=== PATIENT | male | born 2000 | race Caucasian/White ===

== ENCOUNTER 2024-08-07 07:37 | Emergency (ER) | payer OTHER, SELFPAY ==
--- NOTE | ~2024-08-07 | CT_ITS ---
CT abdomen pelvis w con Ordering provider: Alexandre Welch MD History: 24 years Male with . abdominal pain-MID DIFFUSED,X1DAY,CRAMPING . Comparison: None. Technique: CT abdomen and pelvis with IV and without oral contrast. Automated exposure control and it erative reconstruction technique were employed. The dose-length product was 176.56 mGy-cm. 100 mL Omn ipaque 350 was given IV. Findings: VISUALIZED LOWER CHEST: Normal. UPPER ABDOMINAL ORGANS: Liver: Normal. Gallbladder: Normal. Spleen: Normal. Stomach/duodenum: Normal. Pancreas: Normal. Adrenals: Normal. Kidneys: Minimal fullness of the renal pelvis bilaterally. PELVIC ORGANS: The bladder is normal. BOWEL AND MESENTERY: Colon: No evidence of diverticulitis. Fecal material is loaded in the colon. The appendix is not demo nstrated. Small Bowel: Normal. No obstruction. Peritoneum/mesentery: No free air or free fluid. No mesenteric lymphadenopathy. RETROPERITONEUM: Normal aorta. No retroperitoneal lymphadenopathy. MUSCULOSKELETAL: Superficial soft tissues: The superficial soft tissues are normal. Bones: Normal spine. IMPRESSION: 1. No evidence of diverticulitis or intestinal obstruction. The appendix is not well demonstrated. 2. Minimal fullness of the renal pelvis bilaterally most likely due to overdistended bladder. 3. Constipation. Reviewed, dictated and finalized at location A. IMPRESSION: 1. No evidence of diverticulitis or intestinal obstruction. The appendix is no t well demonstrated. 2. Minimal fullness of the renal pelvis bilaterally most likely due to overdis tended bladder. 3. Constipation.
[2024-08-07 07:37] VITALS: BP 148/99; PULSE 73; RESP 14; TEMP 36.7; O2SAT 100
--- OUTSIDE RECORDS SUMMARY | 2024-08-07 07:41 | XMS_ITS | CONTINUITY OF CARE DOCUMENT ---
Author Name jesenia michaelbill Address Unknown Organization [facility] Address [address] [place] [address] Phone [phone] Care Team Providers Care Production Or Plant Engineer Name Role Phone John ESPINOSA, Nathaly Unavailable John ESPINOSA, Nathaly Unavailable HIEU ESPINOSA, [facility] Bisi Unavailable PROBLEMS Condition Status Date Provider Notes Shortness of breath (SOB) active Lucas Argueta Family History of Hyperlipidemia: active ? To livia Lopez MD Chest pain-type to be determined active Froylan Lopez MD Near Syncope active Nathaly Lopez MD ENCOUNTERS Date Type Provider Location Encounter Diag nosis - In-person encounter Office Visit Nathaly Lopez MD [facility] - In-person encounter Office Visit Nathaly Lopez MD [facility] Family History of Hyperlipidemia:Chest pain-type to be determinedNear Syncope VITAL SIGNS Date Observation Value Provider Body Mass Index (Ratio) 19.46 kg/m2 Marcel Lopez MD blood pressure, diastolic 70 mm[Hg] [place] blood pressure, systolic 102 mm[Hg] [place] pulse rate 74 /min [place] oxygen saturation, oximetry 98 % [place] respiratory rate E&M 16 /min [place] height E&M 68 [in_i] [place] weight E&M 128 [lb_av] [place] blood pressure, cuff size regular [place] blood pressure, diastolic 60 mm[Hg] Flores Brink blood pressure, systolic 100 mm[Hg] Can skylar Brink Body Mass Index (Ratio) 18.60 kg/m2 Marcel Loepz MD blood pressure, resting No Marcelo rojas [place] blood pressure, diastolic 70 mm[Hg] Cecilia dickson [place] blood pressure, systolic 120 mm[Hg] Katie trujillo [place] oxygen saturation, oximetry 98 % [facility] [place] respiratory rate E&M 16 /min [facility] [place] pulse rate 88 /min [facility] [place] weight E&M 126 [lb_av] [facility] [place] height E&M 69 [in_i] [facility] [place] ALLERGIES No Known Drug Allergies HISTORY OF MEDICATION USE Medication Status Instructions Dates Provider Indications Com ments GUANFACINE 3MG active one tab once daily [place] SOCIAL HISTORY Date Observation Value Provider Underweight no Nathaly Lopez MD smoking status Never smoker Nathaly Lopez MD social history reviewed E&M reviewed - no changes required Nathaly Lopez MD social history E&M Smoking Histo ry: P hayden has never smoked. Nathaly Lopez MD smoking status Never smoker Ilsa Marleny la number of grandchildren Nathaly Lopez MD T jos Lopez MD social history reviewed E&M reviewed - no changes required Nathaly Lopez MD social history E&M S moking History: Birgit blake has never smoked. Nathaly Lopez MD Underweight yes Nathaly Lopez MD smoking status Never smoker Marina Velasquez FUNCTIONAL STATUS Date Observation Value Provider periodic limb movement index absent (0) Ilsa Keena FAMILY HISTORY Family Member Condition Father Family History of Hy perlipidemia: INSURANCE PROVIDERS Payer name Policy type / Coverage type [place] [employer] party ID [facility] [id number] Other [id number] ADVANCE DIRECTIVES Name Date DISCUSSED - NO DECISION MADE TREATMENT PLAN Date Name Performer Cardiology:PFT's unremarkable. T jos Lopez MD Cardiology:Normal st ress test and echo. No events on monitor. Nathaly Lopez MD Cardiology:Check tele monitor To livia Lopez MD Cardiology:Echo and stress test. C heck PFTs Nathaly Lopez MD Date Name DLCO - 34866 FRC - 40596 FVC - 23117 STR - Routine Complete Echo Mobile Cardiac Tele HISTORY OF PROCEDURES Procedure Date Procedure Name Provider Procedure Notes S tatus Stress EKG Nathaly Lopez MD completed FVC / MVV - 32118 Nathaly Lopez MD co mpleted FRC - 68866 Nathaly Lopez MD complete d SpO2 w/o 6min walk/titration Nathaly Lopez MD completed DLCO - [id number] Nathaly Lopez MD complet ed Event Monitor Nathaly Lopez MD comple jenny
--- OUTSIDE RECORDS SUMMARY | 2024-08-07 07:41 | XMS_ITS | Clinical Summary ---
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 Gender Identity Not on file Sexual Orientation Not on file Plan of Treatment Health Maintenance Due Date Last Done Comments Hepatitis C Virus (HCV) Screening 2000 Meningococcal B Immunization (1 of 2 - Standard) 2016 Influenza Immunization (#1) 2023 SARS-COV-2 Immunization ( season) 2023 Respiratory Syncytial Virus (RSV) Immunization (Adult) (1 - 1-dose 75+ series) 2075 Hepatitis B Immunization Completed 002, 2000, 2000 Pneumococcal Immunization Combined Aged Out 07/10/2001, 2000, 2000, Additional history exists No longer eligible based on patient's age to complete this topic DTaP/Tdap/Td Immunization Discontinued 2011, 10/26/2004, 07/10/2001, Additional history exists TdaP Immunization Completed 04/11/2011 Human Papillomavirus (HPV) Immunization Completed 04/30/2015, 02/05/2015, 09/14/2014 Meningococcal Immunization (ACWY) Completed 06/14/2016, 04/11/2011 Rotavirus Immunization Aged Out No lo nger eligible based on patient's age to complete this topic
--- OUTSIDE RECORDS SUMMARY | 2024-08-07 07:41 | XMS_ITS | Clinical Summary ---
Author Organization [facility] Address [address] [place] [address] Care Team Providers Care Curve Saw Operator Name Role Phone Amelia Jacobo NUT PACKER Primary Care Provider [phone] Allergies No known active allergies Medications guanFACINE (TENEX) 1 MG tablet Take 3 tablets (3 mg total) by mouth nightly at bedtime. at bedtime. Active diazePAM (VALIUM) 5 MG tabletIndicatio ns:Neck pain Take 1 tablet (5 mg total) by mouth every 6 (six) hours as needed for Muscle Spasms. 7 tablet 03/27/2024 Active cyclobenzaprine (FLEXERIL) 10 MG tablet Take 1 tablet (10 mg total) by mouth 3 (three) times daily as needed for Muscle Spasms. 30 tablet 07/08/2024 07/19/19 25 Active Problems Problem Noted Date Diagnosed Date Family history of cardiovascular disease 022 Atypical chest pain 02/28/2022 Temporal arteritis ([facility]) 06/17/2019 Shortness of breath 06/27/2017 Near syncope 06/21/2017 Encounters Date Type Department Care Team Description 07/08/2024 7:41 AM CDT - 07/08/2024 8:50 AM CDT Emergency [facility] Emergency Room [address] [place] [address] Jordy Meehan MD Back Pain Discharge Disposition: Home or Self Care (Routine Discharge) 07/08/2024 Travel from Last 3 Months Immunizations Immunization Administration Dates Next Due DTaP (Daptacel) 10/26/2004,2000,2000 ,2000 DTaP/Hib (TriHIbit) 07/10/2001 HPV GARDASIL 9-VALENT 04/30/2015,02/05/2015 HPV4 (Gardasil) 09/14/2014 Hepatitis A (Havrix [address]) 09/22/2009, 009 Hepatitis B Pediatric 2001,2000,04/02 Hib (Omni-Hib) 2000,2000,2000 MMR (MMRII) 10/26/2004,07/10/2001 Meningococcal (Menactra) 06/14/2016,04/11/2011 Pneumococcal (Prevnar 7) 07/10/2001,2000,0 2000,2000 Polio IPV (Ipol) 10/26/2004,2001, 1,2000 Tdap (Generic) 04/11/2011 Varicella (Varivax) 06/25/2008,2001 Family History Medical History Relation Comments No Known Problems Brother Cancer Father Hyperlipidemia Father Rheumatoid Arthritis Mother No Known Problems Sister Relation Status Comments Brother Alive Father Alive Mother Alive Sister Alive Social History Tobacco Use Types Packs/Day Years Used Date Smoking Tobacco: Never Smokeless Tobacco: Never Tobacco Cessation:Counseling Given: Not Answered Alcohol Use Standard Drinks/Week Comments Yes 0 (1 standard drink = 0.6 oz pur e alcohol) once a month AUDIT-C Answer Date Recorded Frequency of Alcohol Consumption Never 06/11/2019 Average Number of Drinks Not on file 020 Frequency of Binge Drinking Not on file 05/31 Sex and Gender Information Value Date Recorded Sex Assigned at Not on file Legal Sex Male 5:59 PM CDT Gender Identity Not on file Sexual Orientation Not on file 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 on file Not on file Not on file Last Filed Vital Signs Vital Sign Reading Time Taken Comments Blood Pressure 114/68 07/08/2024 8:52 AM CDT Pulse 64 07/08/2024 8:52 AM CDT Temperature 36.3 C (97.4 F) 07/08/2024 8:52 AM CDT Respiratory Rate 16 07/08/2024 8:52 AM CDT Oxygen Saturation 99% 07/08/2024 8:52 AM CDT Inhaled Oxygen Concentration - - Weight 57.6 kg (127 lb) 07/08/2024 7:35 AM CDT Height 175.3 cm (5' 9 ) 07/08/2024 7:35 AM CDT Body Mass Index 18.75 07/08/2024 7:35 AM CDT Plan of Treatment Health Maintenance Due Date Last Done Comments Annual Physical 2003 Hepatitis C 2018 DTaP, Tdap and Td Vaccines (7 - Td or Tdap) 04/11/2021 04/11/2011, 10/26/2004, 07/10/2001, Additional history exists COVID-19 Vaccine (2023- season) 2023 Hepatitis B Vaccines Completed 2001, 2000, 2000 Pneumococcal Vaccine: Pediatrics (0 to 5 Years) and At-Risk Patients (6 to 49 Years) Aged Out 07/10/2001, 2000, 2000, Additional history exists No longer eligible based on patient's age to complete this topic HPV Vaccines Completed 04/30/2015, 08/2014, 09/14/2014 Meningococcal Vaccine Completed 06/14/2016, 012 Meningococcal B Vaccine Aged Out No l onger eligible based on patient's age to complete this topic RSV Immunizations Under 20 Months Aged Out No longer eligible based on patient's age to complete this topic Insurance [facility] Care Teams Curve Saw Operator Relationship Specialty Start Date End Date Amelia Jacobo NP [address] [place] [phone] PCP - General NURSE PRACTITIONER 10/13/23
--- OUTSIDE RECORDS SUMMARY | 2024-08-07 07:41 | XMS_ITS | Clinical Summary ---
Author Organization [facility] Address [address] [place] [address] Care Team Providers Care Rn Cardiac Cath Name Role Phone Unavailable Primary Care Provider Unavailabl e Source Comments [facility],non-owned Affiliates and Associated Physician Practices is amultiple site organization consisting of ambulatory clinics and hospital sitesin [place], [place], [place] and [place]. This disclosure is being madepursuant to the Care Everywhere program and may not contain all information available regarding this patient. 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 Gender Identity Not on file Sexual Orientation Not on file Plan of Treatment Health Maintenance Due Date Last Done Comments HIV SCREENING 2015 HPV VACCINE (1 - Male 3-dose series) 2015 HEPATITIS C SCREENING 04/06/2018 DTAP/TDAP/TD VACCINES (1 - Tdap) 2019 HEPATITIS B VACCINE (1 of 3 - 19+ 3-dose series) 2019 COVID-19 VACCINE (1 - 2023-2 5 season) 2023 DEPRESSION SCREENING 04/02/2024 INFLUENZA VACCINE (Season Ended) 2024 ZOSTER VACCINE (1 of 2) 2050 HIB VACCINE Aged Out No longer eligi ble based on patient's age to complete this topic MENINGOCOCCAL (Group B) VACC INE SHARED DECISION-MAKING Aged Out No longer eligibl e based on patient's age to complete this topic MENINGOCOCCAL GROUPS A/C/Y/W VACCINE Aged Out No longer eligible b ased on patient's age to complete this topic PNEUMOCOCCAL VACCINE Aged Out No long er eligible based on patient[place] age [place] [id number]
--- OUTSIDE RECORDS SUMMARY | 2024-08-07 07:41 | XMS_ITS | Data Portability ---
Author Organization [facility] [employer], Main Office Address [address] [place] [address] Assessment No assessment recorded. Plan of Treatment Reminders Order Date Submit Date Provider Last Modified By Organization Details Last Modified Time Details Appointments None recorded. Lab None recorded. Referral genetics referral - Minimal pectus excavatum, associated chest pressure, disproporti onately long arms. Cardiology workup negative. Please call patient to schedule an appointment . Thank you. 2023 hrushing6 [facility], [address] [place], [address], 08:54:41 Procedures None recorded. Surgeries None recorded. Imaging XR, chest, 2 view - *Please call pt to schedule* 2023 [facility], [address], [place] [address], [place], [address], 14:11:59 Medication Orders amoxicillin 875 mg-potassiu m clavulanate 125 mg tablet 2023 STEPHAN [facility]07861, [address] [place] [address], [id number], 15:57:59 guanfacine ER 3 mg tablet,exte nded release 24 hr 2023 [facility], [address], [place], [id number], 09:20:15 guanfacine ER 3 mg tablet,exte nded release 24 hr 2023 024 [facility]70293, [address], [place], [id number], 4 08:51:41 Patient TargetsNo targets recorded. Patient InstructionsNo instructions recorded. Reason for Referral Genetics Referral for Pectus excavatum Minimal pectus excavatum, associated chest pressure, disproportionately long arms. Cardiology workup negative. Please call patient to schedule an appointment. Thank you. Referring Physician: Amelia Jacobo, Family Medicine, Encounter Date: 10/11/2023 Results Created Date Observation Date Name Description Value Unit Range Abnormal Flag Note LastModifiedBy Organization Detail LastModifiedTime 10/13/19 24 10/13/2023 XR, chest , 2 view No observ ation record ed. [facility] [address] [place], [address], 10/15/2023 09:54:13 Result Notes None recorded. Problems Name Problem SNOMED Code Status Onset Date Resolution Date Notes Provider Name and Address Organization Details Recorded Time Atypical chest pain 938990020 Active 2021 Not Available [facility] 3 21:29:26 Headache 33874322 Active 2019 Not Available [facility] 3 21:29:26 Scoliosis deformity of spine 515827601 Active 2018 Not Available [facility] 3 21:29:26 Temporal arteritis 945862028 Active 2019 Not Available [facility] 3 21:29:26 Attention deficit hyperactiv ity disorder 205436222 Active 2018 Not Available [facility] 3 21:29:26 Impacted cerumen of bilateral ears 9922048404747 108 Active [address] [facility] [facility] [address], [place], [address] , [facility] [employer] [facility] 4 08:50:27 Tight chest 74455040 Active [address] [facility], [place], [address] , [employer] [facility] [employer] [facility] 4 09:12:49 Pectus excavatum 194816067 Active 2023 [address] EUSEBIO [address]P [address] [facility], [address], [place], [address] , [employer] 4 09:14:17 Poor oral hygiene 188266817 Active [address] [facility], [address], [place], [address] , [employer] 4 15:45:47 Lymphadeno pooja 04491593 Active [address] [facility], [address], [place], [address] , [employer] 4 15:46:17 Problem Notes None recorded. Procedures Surgical History Date Name Laterality Status Provider Name and Address Organization Details Recorded Time Ear Tubes completed Not Available [facility] 0 05/31/2022 21:28:44 Imaging Results Imaging Date Name Status LastModified by Organiz ation Details LastModified Time 10/13/2023 XR, chest, 2 view completed [address] [address] [place], [address], 10/15/2023 09:54:13 Procedure Notes None recorded. Medical Equipment None Reported. Allergies No known drug allergies Medications Name Sig Start Date Stop Date Status Note LastModified by Organization Details LastModified Time doxycycline hyclate 100 mg capsule TAKE 1 CAPSULE BY MOUTH TWICE DAILY 03/14 completed Not Available Not Available Not Available meloxicam 15 mg tablet Take 1 tablet every day by oral route. 06/03 completed Not Available Not Available Not Available prednisone 20 mg tablet 2 tabs po daily for 5 days active Not Available Not Available No t Available amoxicillin 500 mg tablet Take 1 tablet every 8 hours by oral route as directed for 7 days. active Not Available Not Available No t Available diazepam 5 mg tablet active Not Available Not Available No t Available amoxicillin 875 mg-potassiu m clavulanate 125 mg tablet Take 1 tablet every 12 hours by oral route for 10 days. active Not Available Not Available No t Available guanfacine ER 3 mg tablet,exte nded release 24 hr TAKE 1 TABLET BY MOUTH EVERY DAY 2024 active Not Available Not Available Not Avai lable ID NOW COVID-19 Test Kit TEST DIRECTED TODAY 02/28 completed Not Available Not Available Not Available Vitals Date Recorded Body mass index (BMI) Body height Oxygen saturation Oxygen saturation in Arterial blood by Pulse oximetry Heart rate Body temperature Body weight Systolic blood pressure Diastolic blood pressure Provider Name and Address Organization Details Last Updated DateTime 3 19.3 kg/m2 175.26 cm 97 % 97 % 83 /min 97.3 [degF] 58919.6 g 110 mm[Hg] 70 mm[Hg] Not Available [facility] 3 21:28:56 Date Recorded Body weight Body mass index (BMI) Body height Body temperature Heart rate Respiratory rate Oxygen saturation Oxygen saturation in Arterial blood by Pulse oximetry Pain severity - 0-10 verbal numeric rating [Score] - Reported Systolic blood pressure Diastolic blood pressure Provider Name and Address Organization Details Last Updated DateTime 4 43655.6 2 g 19 kg/m2 175.26 cm 97.8 [degF] 87 /min 20 /min 98 % 98 % 0 118 mm[Hg] 78 mm[Hg] ROBERTO Vallecillo Raman [employer] 4 08:34:59 Date Recorded Body height Body mass index (BMI) Body weight Body temperature Heart rate Respiratory rate Oxygen saturation Oxygen saturation in Arterial blood by Pulse oximetry Pain severity - 0-10 verbal numeric rating [Score] - Reported Systolic blood pressure Diastolic blood pressure Provider Name and Address Organization Details Last Updated DateTime 4 175.26 cm 19.1 kg/m2 67689.1 2 g 97.2 [degF] 71 /min 20 /min 91 % 91 % 1 104 mm[Hg] 80 mm[Hg] ROBERTO Vallecillo Raman [employer] 4 09:01:07 Date Recorded Body height Body mass index (BMI) Body weight Body temperature Heart rate Respiratory rate Oxygen saturation Oxygen saturation in Arterial blood by Pulse oximetry Pain severity - 0-10 verbal numeric rating [Score] - Reported Systolic blood pressure Diastolic blood pressure Provider Name and Address Organization Details Last Updated DateTime 4 175.26 cm 19.3 kg/m2 36973.1 1 g 98.6 [degF] 105 /min 20 /min 97 % 97 % 0 140 mm[Hg] 88 mm[Hg] Audrey Camargo RN [facility] [employer] [facility] 4 15:31:49 Date Recorded Body height Body mass index (BMI) Body weight Body temperature Heart rate Oxygen saturation Oxygen saturation in Arterial blood by Pulse oximetry Systolic blood pressure Diastolic blood pressure Provider Name and Address Organization Details Last Updated DateTime 4 175.26 cm 19 kg/m2 30795.4 2 g 98.3 [degF] 91 /min 98 % 98 % 130 mm[Hg] 70 mm[Hg] Marybel Lciea RN [facility] [employer] [facility] 4 15:42:55 Social History Question Answer Notes LastModified by Organization Details LastModified Time Tobacco Smoking Status Never Smoker Not Available [facility] 05/31/2022 21:28:33 Do You Have An Advance Directive? No Information not available 07/04/2023 What Is Your Level Of Alcohol Consumption? None [id number].[id number] Information not available 05/31/2022 Are You Blind Or Do You Have Difficulty Seeing? No MIGRATION.[id number] Information not available 05/31/2022 Is Blood Transfusion Acceptable In An Emergency? Yes Information not available 07/04/2023 What Is Your Level Of Caffeine Consumption? Moderate MIGRATION.030 389202 Information not available 05/31/2022 What Is Your Code Status? Full Code Information not available 07/04/2023 In The 14 Days Before Symptom Onset, Have You Had Close Contact With A Laboratory-confi rmed COVID-19 While That Case Was Ill? No MIGRATION.[id number] Information not available 05/31/2022 In The 14 Days Before Symptom Onset, Have You Had Close Contact With A Person Who Is Under Investigation For COVID-19 While That Person Was Ill? No MIGRATION.[id number] Information not available 05/31/2022 Are You Currently Employed? Yes Information not available 07/04/2023 Are You Deaf Or Do You Have Serious Difficulty Hearing? No MIGRATION.0301 022804 Information not available 05/31/2022 What Type Of Diet Are You Following? 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 Yes Mom Poor Health Information not available 03/14/2024 Do You Use Insect Repellent Routinely? Yes MIGRATION.0301 317498 Information not available 05/31/2022 Where Do You Live? SingleLevelHouse Information not available 03/14/2024 How Many Children Do You Have? 2 Information not available 10/11/2023 Do You Have Any Pets? Yes MIGRATION.0301 801517 Information not available 05/31/2022 What Is Your Relationship Status? Single Engaged Information not available 07/04/2023 Do You Use Your Seat Belt Or Car Seat Routinely? Yes MIGRATION.0301 780936 Information not available 05/31/2022 Do You Have Smoke And Carbon Monoxide Detectors In Your Home? Yes MIGRATION.0301 038435 Information not available 05/31/2022 Are There Any Smokers In Your House? No MIGRATION.0301 393954 Information not available 05/31/2022 Do You Participate In Social Media? Yes MIGRATION.0301 573151 Information not available 05/31/2022 Do You Feel Stressed (tense, Restless, Nervous, Or Anxious, Or Unable To Sleep At Night)? [id number] Information not available 10/11/2023 Do You Use Any Illicit Or Recreational Drugs? No MIGRATION.0301 573601 Information not available 05/31/2022 Do You Use Sunscreen Routinely? Yes MIGRATION.0301 214445 Information not available 05/31/2022 Has Tobacco Cessation Counseling Been Provided? No MIGRATION.0301 741463 Information not available 05/31/2022 Have You Recently Traveled Abroad? No MIGRATION.0301 928175 Information not available 05/31/2022 Do You Have Any Dietary Restrictions? No MIGRATION.0301 631993 Information not available 05/31/2022 Do You Or Have You Ever Used Any Other Forms Of Tobacco Or Nicotine? No MIGRATION.0301 417175 Information not available 05/31/2022 Sex: Unknown Functional Status Question Answer Note LastModified by Organizat [employer] Details LastModified Time Do you have difficulty walking or climbing stairs? No MIGRATION.52182 26430 Information not available 05/31/2022 Do you have transportation difficulties? No MIGRATION.77728 43958 Information not available 05/31/2022 Are you able to walk? YESWOREST MIGRATION.36592 47388 Information not available 05/31/2022 Do you have difficulty doing errands alone? No MIGRATION.80525 14871 Information not available 05/31/2022 Are you able to care for yourself? Yes MIGRATION.65815 51957 Information not available 05/31/2022 Do you have difficulty dressing or bathing? No MIGRATION.58405 46885 Information not available 05/31/2022 What is your exercise level? Physical job MIGRATION.71763 70345 Information not available 05/31/2022 Mental Status Question Answer Note LastModified by Organizat ion Details LastModified Time Do you have difficulty concentrating, remembering or making decisions? No MIGRATION.[id number] 6 Information not available 05/31/2022 Family History Relationship Description Onset Age of this Age Resolved Age Notes LastModified by Organization Details LastModified Time Father Metastatic malignant neoplasm to lymph node MIGRATION.434 [id number] Not available 05/31/2022 21:28:45 Medical History Condition Response OTHER # 1 BACK / NECK PROBLEMS Y ADD/ADHD Y Past Encounters Encounter ID Performer Location Encounter Start Date Encounter Closed Date Diagnosis/Indication Diagnosis SNOMED-CT Code Diagnosis ICD10 Code Diagnosis Note [id number] Alberto Leonard MD [facility] [address] [place] [address] 10/27/2020 00:00:00 10/27/2020 08:38:21 [id number] Alberto Leonard MD [facility] [address] [place] [address] 04/04/2021 00:00:00 04/04/2021 14:39:24 [id number] Alberto Leonard MD [address] [address] 02/28/2022 00:00:00 02/28/2022 09:55:29 [id number] Alberto Leonard MD [address] [address] 05/30/2022 00:00:00 05/30/2022 09:28:12 [id number] Alberto Leonard MD [address] [address] 07/04/2023 08:26:25 07/04/2023 08:55:49 Attention deficit hyperactivity disorder 421561027 F90.9 Impacted c erumen of bilateral ears 3645705218 430437 H61.23 Discussed irrigation , patient refused. Advised to call in if cerumen becomes painful or has difficulty hearing. Offered to order Debrox, pt states he has some at home already. [id number] Alberto Leonard MD [address] [address] 10/11/2023 08:50:57 10/11/2023 09:31:48 Tight chest 50338567 R07.89 Pectus excavatum 1478177 05 Q67.6 Attention deficit hyperactivity disorder 327748009 F90.9 [id number] Alberto Leonard MD [address] [address] 03/14/2024 15:22:10 03/14/2024 15:48:35 Lymphadenopathy 34039151 R59.0 Left sided sub-mandib ular lymphadeno pooja. Resolved today.Node described as golf-ball sized, round, mobile, and tenderOffe red antibiotic , pt declinesWi ll monitor and notify us if swelling returns. Poor oral hygiene 783840 009 R46.89 Patient states he has frequent infections , does see a dentist often. Multiple broken teeth [id number] Alberto Leonard MD [address] [address] 03/27/2024 15:26:42 03/27/2024 16:08:45 Poor oral hygiene 509913313 R46.89 Lymphadenopathy 32784077 R59.0 Health Concerns Section Related Observation LastModified by Organization Detai ls LastModified Time None Recorded Concern Status LastModified by Organization Details LastModified Time None Recorded Advance Directives Directive N: Payers Encounter Date Sequence Insurance Name Policy Number Policy Mason Covered Member ID Mason Member ID Guarantor Name 07/04/2023 1 [facility] [id number] Jack Fishman [id number] Amado Fishman 10/11/2023 1 [facility] [id number] Jack Fishman [id number] Amado iFshman 03/14/2024 1 [facility] [id number] Jack Fishman [id number] Amado Fishman 03/27/2024 1 [facility] [id number] Jack Fishman [id number] Amado Fishman Notes Date Note Type Note Provider Name and Address Organization Details Recorded Time 07/04/2023 text/html Amado Fishman i s a 23 year old here to establish care. His past history is pertinent for ADHD. He is currently taking guanfacine er 3mg PO daily. He feels his symptoms are well controlled on this medication and dose. He is able to focus daily at work. He has headaches. He is having headaches about once a week. He takes tylenol and they go away. He is not interested in pursuing other headache medications at this time. Flu Shot: declinesCOVID vaccines: declines Amelia Jacobo, COMMAND CENTER ANALYST [address] [facility] [address], [place], [address], [facility] [employer] 07/04/2023 08:52:13 10/11/2023 text/html Hemanth Fishman is a 23 year old male patient here today for generalized chest pressure and back spasms. He has felt chest pressure for the last two weeks and it is self limiting. He states the chest pressure is worse when submerged in water or driving a car. He has had atypical chest pain since he was young. He has seen cardiology twice and had an echo and halter with normal results. He notes that he has concave ribs He has back spasms with this pressure. He recently had a in the family and has 10 month old twins. He admits to increased stress. LUCA Garza [address], [place], [address], [employer] [facility] [employer] [facility] 10/11/2023 09:26:38 03/14/2024 text/html Hemanth Fishman is a 23 year old male patient here today for concerns on lymp node swelling. He states that he woke up in the middle of the night with a golf-ball sized lymph node on the left submandibular angle. The mass is gone today.He admits to some tooth decay and pain.Denies congestion, sinus drainage LUCA Garza [address], [place], [address], [employer] [facility] 03/14/2024 15:47:55 03/27/2024 text/html poor dentition , tender lump left jaw LIBBY Franco [address], [place], [address], [employer] [facility] [employer] 04/07/2024 09:11:49
--- NOTE | 2024-08-07 07:49 | ECG_ITS ---
Test Date: 2024-08-07 08:10:25 Measurements Intervals [place] Rate: 68 P: 73 SD: 130 QRS: 81 QRSD: 85 T: 68 QT: 366 QTc: 390 Interpretive Statements SINUS RHYTHM ST ELEVATION, PROBABLY EARLY REPOLARIZATION [ST ELEVATION WITH NORMALLY INFLECTED T-WAVE] No previous ECG available for comparison Electronically Signed On 08-07-2024 09:59:47 CDT by Cj Leonard M.D.
[2024-08-07] MEDS: SODIUM CHLORIDE 0.9% IV 1,000 ML 999 ML IV CONT (08:01)
[2024-08-07] MEDS: KETOROLAC 30 MG/ML VIAL (*BKC) IV PUSH (08:02)
[2024-08-07 08:16] LABS: Basophils Absolute Auto 0.05 K/mm3 (0.00-0.10); Basophils Percent Auto 0.5 % (0.0-1.0); Eosinophils Absolute Auto 0.04 K/mm3 (0.02-0.50); Eosinophils Percent Auto 0.4 % (1.0-6.0); Hematocrit 48.6 % (40.0-54.0); Hemoglobin 16.2 g/dL (14.0-18.0); Immature Granulocyte Absolute 0.03 K/mm3 (0.00-0.00); Immature Granulocyte Percent A 0.3 % (0.0-0.0); Lymphocytes Percent Auto 18.8 % (18.0-42.0); Mean Corpuscular HGB Conc 33.3 g/dL (32-36); Mean Corpuscular Hemoglobin 30.1 pg (27.0-31.0); Mean Corpuscular Volume 90.2 fL (78.0-102.0); Mean Platelet Volume 9.7 fl (8.7-11.0); Monocytes Absolute Auto 0.74 K/mm3 (0.10-0.90); Monocytes Percent Auto 7.7 % (2.0-11.0); Neutrophils Absolute Auto 6.89 K/mm3 (1.70-7.20); Neutrophils Percent Auto 72.3 % (50.0-70.0); Platelet Count Result 226 K/mm3 (150-420); Red Blood Count 5.39 M/mm3 (4.70-6.10); Red Cell Distribution Width 11.7 % (11.6-14.4); White Blood Count 9.6 K/mm3 (4.8-10.8)
--- OUTSIDE RECORDS SUMMARY | 2024-08-07 08:27 | XMS_ITS | Clinical Summary ---
Author Organization [facility] [employer] Address [address] [place] [address] Care Team Providers Care Sanitarian Name Role Phone Unavailable Primary Care Provider Unavailabl e Source Comments [facility],non-owned Affiliates and Associated Physician Practices is amultiple site organization consisting of ambulatory clinics and hospital sitesin [place], [place], [place] and [place]. This disclosure is being madepursuant to the Care Everywhere program and may not contain all information available regarding this patient. 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
--- OUTSIDE RECORDS SUMMARY | 2024-08-07 08:27 | XMS_ITS | Clinical Summary ---
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
--- OUTSIDE RECORDS SUMMARY | 2024-08-07 08:27 | XMS_ITS | Clinical Summary ---
Author Organization [facility] Address [address] [place] [address] Care Team Providers Care News Technical Director Name Role Phone Amelia Jacobo ORTHOPEDIC NURSE PRACTITIONER Primary Care Provider [phone] Allergies No known active allergies Medications [...] 022 Atypical chest pain 02/28/2022 Temporal arteritis ([facility] 06/17/2019 Shortness of breath 06/27/2017 Near syncope 06/21/2017 Encounters Date Type Department Care Team Description 07/08/2024 7:41 AM CDT - 07/08/2024 8:50 AM CDT Emergency [facility] Emergency Room [address] [place] [address] Jordy Meehan MD Back Pain [...] 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
--- OUTSIDE RECORDS SUMMARY | 2024-08-07 08:27 | XMS_ITS | CONTINUITY OF CARE DOCUMENT ---
Author Name jesenia michaelbill Address Unknown Organization [facility] Address [address] [place] [address] Phone [phone] Care Team Providers Care Crtt Name Role Phone John ESPINOSA, Nathaly Unavailable John ESPINOSA, Nathaly Unavailable HIEU ESPINOSA, [facility] Bisi Unavailable [phone] PROBLEMS Condition Status Date Provider Notes Shortness of breath (SOB) active Lucas Argueta Family History of Hyperlipidemia: active ? To livia Lopez MD Chest pain-type to be determined active Froylan Lopez MD Near Syncope active Nathaly Lopez MD ENCOUNTERS Date Type Provider Location Encounter Diag nosis - In-person encounter Office Visit Nathaly Lopez MD [facility] - In-person encounter Office Visit Nathaly Lopez MD [facility] Family History of Hyperlipidemia:Chest pain-type to [...] Body Mass Index (Ratio) 18.60 kg/m2 Marcel Lopez MD blood pressure, resting No Marcelo rojas [facility] blood pressure, diastolic 70 mm[Hg] Cecilia dickson [facility] blood pressure, systolic 120 mm[Hg] Katie trujillo [facility] oxygen saturation, oximetry 98 % [facility] respiratory rate E&M 16 /min [facility] pulse rate 88 /min [facility] weight E&M 126 [lb_av] [facility] height E&M 69 [in_i] [facility] ALLERGIES No Known Drug Allergies [...] moking History: Birgit blake has never smoked. Natahly Lopez MD Underweight yes Nathaly Lopez MD smoking status Never smoker Marina Velasquez FUNCTIONAL STATUS Date Observation Value Provider periodic limb movement index absent (0) Ilsa Keena FAMILY HISTORY Family Member Condition Father Family History of Hy perlipidemia: INSURANCE PROVIDERS Payer name Policy type / Coverage type Crum red constitution party ID [facility] [id number] Other [id number] ADVANCE DIRECTIVES Name Date DISCUSSED - NO DECISION MADE TREATMENT PLAN Date Name Performer Cardiology:PFT's unremarkable. T jos Lopez MD Cardiology:Normal st ress test and echo. No events on monitor. Nathaly Lopez MD Cardiology:Check tele monitor To livia Lopez MD Cardiology:Echo and stress test. C heck PFTs Nathaly Lopez MD Date Name DLCO - 37681 FRC - 79214 FVC - 56366 STR - Routine Complete Echo Mobile Cardiac Tele HISTORY OF PROCEDURES Procedure Date Procedure Name Provider Procedure Notes S tatus Stress EKG Nathaly Lopez MD completed FVC / MVV - 35500 Nathaly Lopez MD co mpleted FRC - 74490 Nathaly Lopez MD complete d SpO2 w/o 6min walk/titration Nathaly Lopez MD completed DLCO - 36660 Nathaly Lopez MD complet ed Event Monitor Nathaly Lopez MD comple jenny
[2024-08-07 08:30] LABS: Alanine Aminotransferase 12 U/L (6-50); Albumin Level 4.6 g/dL (3.5-5.1); Alkaline Phosphatase 67 U/L (38-126); Anion Gap 4 mmol/L (4-12); Aspartate Amino Transferase 31 U/L (17-59); Bilirubin,Total 0.8 mg/dL (0.2-1.3); Blood Urea Nitrogen 12 mg/dL (9-20); Calcium 9.1 mg/dL (8.4-10.2); Carbon Dioxide 31 mmol/L (22-30); Chloride 103 mmol/L (98-107); Estimated CRCL calculation 92 ml/min; Estimated Glomerular Filt Rate > 60; Glucose 105 mg/dL (65-110); Lipase 60 U/L (23-300); Osmolality Calculated 285 mOsm/kg (285-295); Potassium 4.3 mmol/L (3.4-5.0); Sodium 138 mmol/L (137-145); Total Protein 7.5 g/dL (6.3-8.2)
[2024-08-07 08:38] LABS: INR 1.1; Lactic Acid Reflex 1.5 mmol/L (0.4-2.0); Prothrombin Time 11.6 Seconds (9.50-12.1)
[2024-08-07 08:49] LABS: Troponin I < 0.012 ng/mL (0.000-0.034)
[2024-08-07 08:52] LABS: Influenza A QL RT-PCR Negative (Negative); Influenza B QL RT-PCR Negative (Negative); RSV RNA, RT-PCR Negative (Negative); SARS-CoV-2 RNA PCR Negative (Negative)
[2024-08-07 09:21] LABS: Add Urine Microscopic? NO; Appearance Urine Clear (Clear); Bilirubin Urine Negative (Negative); Blood Urine Negative (Negative); Color Urine Light Yellow (Yellow); Glucose Urine UA Negative (Negative); Ketones Urine Negative (Negative); Leukocyte Esterase Ur Negative LEU/UL (Negative); Nitrate Urine Negative (Negative); Protein Urine Negative (Negative); Urobilinogen Urine 0.2 mg/dL (0.2-1.0)
[2024-08-07 09:30] VITALS: BP 139/91; PULSE 63; RESP 14; O2SAT 99
--- NOTE | 2024-08-07 09:30 | ED_ITS ---
HPI - Abdominal Pain General Chief Complaint: Abdominal Pain Stated Complaint: abdominal pain Time Seen by Provider: 08/07/24 07:44 Source: patient Mode of arrival: ambulatory Limitations: no limitations History of Present Illness HPI narrative: this is a 24-year-old male with no significant past medical history presents with some abdominal pain that he rates 7/10 diffuse with no nausea vomiting no fever chills no dysuria or hematuria no flank pain no diarrhea or constipation. Patient also denies any chest pain or shortness of breath. MD elicited complaint: abdominal pain Onset (ago): hour(s) Pain Consistency: constant Location: diffuse Severity: moderate Pain scale (0-10): 7 Quality: cramping and aching Exacerbating factors: nothing Associated symptoms: denies other symptoms Related Data Allergies Allergy/AdvReac Type Severity Reaction Status Date / Time No Known Allergies Allergy Verified 08/07/24 07:43 Review of Systems 2 Review of Systems: All systems reviewed & are unremarkable except as noted in HPI and below PMFSH Past Medical History Medical History Patient denies medical problems Exam 2 Const: General: healthy appearing and no acute distress Nutritional Appearance: well nourished Orientation/consciousness: patient oriented x3 Limitations: no limitations HENMT: Head: normal to inspection Eyes: Conjunctivae: conjunctivae normal Neck: Neck: normal visual inspection, no lymphadenopathy and no meningeal signs Chest: Chest palpation & inspection: normal inspection of the chest Resp: Effort & Inspection: normal respiratory effort Cardio: Rate: regular rate Rhythm: regular rhythm GI: GI Palp: Yes Soft to palpation Auscultation: normal bowel sounds : General: Yes bladder normal to palpation Skin: General skin exam: normal color Rashes: no rashes Neuro: General: patient oriented x3 and moves all extremities Extrem: General: normal to inspection and no clubbing, cyanosis or edema Course Course Emergency Course: patient was given IV fluids and IV Toradol and symptoms have improved labs reviewed and within normal limits. CT scan performed and reviewed with patient. Vital Signs Vital signs: Vital Signs Temperature 36.7 C 08/07/24 07:37 Pulse Rate 73 08/07/24 07:37 Respiratory Rate 14 08/07/24 07:37 Blood Pressure 148/99 H 08/07/24 07:37 Pulse Oximetry 100 08/07/24 07:37 Oxygen Delivery Room Air 08/07/24 07:37 Temperature 36.7 C 08/07/24 07:37 Pulse Rate 70 08/07/24 09:52 Respiratory Rate 16 08/07/24 09:52 Blood Pressure 132/93 H 08/07/24 09:52 Pulse Oximetry 100 08/07/24 09:52 Oxygen Delivery Room Air 08/07/24 09:30 MDM - Abdominal Pain Lab Data 08/07/24 08:09 08/07/24 08:09 Labs: Lab Results 08/07/24 Range/Units 08:09 WBC 9.6 (4.8-10.8) K/mm3 RBC 5.39 (4.70-6.10) M/mm3 Hgb 16.2 (14.0-18.0) g/dL Hct 48.6 (40.0-54.0) % MCV 90.2 (78.0-102.0) fL MCH 30.1 (27.0-31.0) pg MCHC 33.3 (32-36) g/dL RDW 11.7 (11.6-14.4) % Plt Count 226 (150-420) K/mm3 MPV 9.7 (8.7-11.0) fl Immature Gran % (Auto) 0.3 H (0.0-0.0) % Neut % (Auto) 72.3 H (50.0-70.0) % Lymph % (Auto) 18.8 (18.0-42.0) % [place] % (Auto) 7.7 (2.0-11.0) % Eos % (Auto) 0.4 L (1.0-6.0) % Baso % (Auto) 0.5 (0.0-1.0) % Lymph # (Auto) 1.80 (1.10-4.50) K/mm3 [place] # (Auto) 0.74 (0.10-0.90) K/mm3 Eos # (Auto) 0.04 (0.02-0.50) K/mm3 Baso # (Auto) 0.05 (0.00-0.10) K/mm3 Abs Immat Gran (auto) 0.03 H (0.00-0.00) K/mm3 Absolute Neuts (auto) 6.89 (1.70-7.20) K/mm3 Absolute Nucleated RBC 0.00 (0.00-0.00) K/mm3 Nucleated RBC % 0.0 (0-0.0) % PT 11.6 (9.50-12.1) Seconds INR 1.1 APTT 32.0 H (23.9-30.70) Sec Sodium 138 (137-145) mmol/L Potassium 4.3 (3.4-5.0) mmol/L Chloride 103 (98-107) mmol/L Carbon Dioxide 31 H (22-30) mmol/L Anion Gap 4 (4-12) mmol/L BUN 12 (9-20) mg/dL Creatinine 0.90 (0.7-1.3) mg/dL Estim Creat Clear Calc 92 ml/min Estimated GFR > 60 (59 - ) Glucose 105 (65-110) mg/dL Calculated Osmolality 285 (285-295) mOsm/kg Lactic Acid 1.5 (0.4-2.0) mmol/L Calcium 9.1 (8.4-10.2) mg/dL Total Bilirubin 0.8 (0.2-1.3) mg/dL AST 31 (17-59) U/L ALT 12 (6-50) U/L Alkaline Phosphatase 67 (38-126) U/L Troponin I < 0.012 (0.000-0.034) ng/mL Total Protein 7.5 (6.3-8.2) g/dL Albumin 4.6 (3.5-5.1) g/dL Lipase 60 (23-300) U/L Urine Color Light yellow (Yellow) Urine Appearance Clear (Clear) Urine pH 6.0 (5.0-8.0) Ur Specific [place] 1.010 (1.010-1.020) Urine Protein Negative (Negative) Urine Glucose (UA) Negative (Negative) Urine Ketones Negative (Negative) Ur Blood (Man) Negative (Negative) Urine Nitrate Negative (Negative) Urine Bilirubin Negative (Negative) Urine Urobilinogen 0.2 (0.2-1.0) mg/dL Leukocyte Esterase Rfl Negative (Negative) PERRY/UL Influenza A (RT-PCR) Negative (Negative) Influenza B (RT-PCR) Negative (Negative) RSV (RT-PCR) Negative (Negative) SARS-CoV-2 RNA (RT-PCR) Negative (Negative) Imaging Data Radiologist's impression: ITS Impressions Abdomen/Pelvis CT 08/07/24 09:21 IMPRESSION: 1. No evidence of diverticulitis or intestinal obstruction. The appendix is not well demonstrated. 2. Minimal fullness of the renal pelvis bilaterally most likely due to overdistended bladder. 3. Constipation. Critical Care Time Critical Care Time Critical Care Time: No Discharge Plan Discharge Clinical Impression: Gastroenteritis Patient Disposition: Home Condition: Stable Instructions: Antibiotic Form, Gastroenteritis (ED) Additional Instructions: advised to take medication as prescribed and to follow with primary care physician within next the next 3 to 4 days for further evaluation and treatment. Patient Language: Nepalese Prescriptions: New ondansetron 4 mg tablet,disintegrating 4 mg PO Q6H PRN (Reason: nausea and vomiting) Qty: 14 0RF Follow-up/Referrals: Donnell,Amelia Khan, [employer] SORTER [Primary Care Provider] - Stand Alone Forms: Work/School Release IP Time of Disposition: 09:45
[2024-08-07 09:52] VITALS: BP 132/93; PULSE 70; RESP 16; O2SAT 100
--- NOTE | 2024-08-09 17:17 | PC.NURSE ---
blood culture Preliminary No growth to date
== END 2024-08-07 09:56 | disposition home or self-care (01) ==
PROVIDERS: Emergency Provider Emergency Medicine
DX: K52.9 Noninfective gastroenteritis and colitis, unspecified (principal); Z20.822 Contact with and (suspected) exposure to COVID-19
CPT/HCPCS: 36415; 74177; 80053; 81003; 83605; 83690; 84484; 85025; 85610; 85730; 87040; 87637; 93005; 96361; 96374; 99284; J1885; J7030; Q9967